=== PATIENT | female | born 1975 | race Caucasian/White ===

== ENCOUNTER 2023-05-12 09:02 | Emergency (ER) | payer SELFPAY ==
[2023-05-12 10:10] LABS: #Basophils 0.1 thou/uL (0.0-0.2); #Monocytes 0.5 thou/uL (0.11-0.59); #Neutrophils 6.2 thou/uL (1.40-6.50); %Basophils 0.7 % (0.0-1.0); %Eosinophils 0.4 % (0.0-10.0); %Lymphocytes 6.5 % (21.0-51.0); Hematocrit 32.5 % (36.0-47.0); Mean Corpuscular HGB CONC 30.8 g/dL (32.0-36.0); Mean Corpuscular Hemoglobin 29.2 pg (27.0-31.0); Mean Corpuscular Volume 94.8 fl (78.0-98.0); Mean Platelet Volume 11.7 fL (7.4-10.4); Platelet Count 160 10x3/uL (130-400); RBC Distribution Width 15.1 % (11.5-14.5); Red Blood Cell (RBC) Count 3.43 mill/uL (4.20-5.40); White Blood Cell (WBC) Count 7.3 10x3/uL (4.8-10.8)
[2023-05-12 10:38] LABS: Troponin I 0.052 ng/mL (< 0.028)
[2023-05-12 11:51] LABS: Albumin 3.6 g/dL (3.5-5.0); Anion Gap 17 mmol/L (10-20); Calcium 8.6 mg/dL (7.8-10.44); Carbon Dioxide 20 mmol/L (22-29); Chloride 100 mmol/L (98-107); Globulin 3.3 g/dL (2.4-3.5); Glucose 117 mg/dL (70-105); Potassium 5.4 mmol/L (3.5-5.1); Protein, Total 6.9 g/dL (6.0-8.3); Sodium 132 mmol/L (136-145)
[2023-05-12 11:52] LABS: Bilirubin, Total 0.7 mg/dL (0.2-1.2)
[2023-05-12 11:53] LABS: Alkaline Phosphatase 169 U/L (40-110); Calc. Creatinine Clearance 0 mL/min (70-130); Estimated GFR 4
[2023-05-12 11:54] LABS: BUN (Urea Nitrogen) 71 mg/dL (7.0-18.7)
[2023-05-12 11:55] LABS: AST (SGOT) 11 U/L (5-34)
[2023-05-12 11:56] LABS: ALT (SGPT) 10 U/L (8-55)
== END 2023-05-12 12:26 | disposition home or self-care (01) ==
LOC: EDBD 09:02 → ERS 09:02
DX: J18.9 Pneumonia, unspecified organism (principal); E11.22 Type 2 diabetes mellitus with diabetic chronic kidney disease; N18.6 End stage renal disease; J44.9 Chronic obstructive pulmonary disease, unspecified; Z99.2 Dependence on renal dialysis; Z79.899 Other long term (current) drug therapy
CPT/HCPCS: 71045; 80053; 83605; 83880; 84484; 85025; 93005

== ENCOUNTER 2023-09-17 07:22 | Emergency (ER) | payer BC, OTHER ==
[2023-09-17] MEDS ORDERED: Acetaminophen 500 MG TAB ONE (08:52)
== END 2023-09-17 11:22 | disposition home or self-care (01) ==
LOC: ERS 07:22
DX: S00.83XA Contusion of other part of head, initial encounter (principal); N18.6 End stage renal disease; E11.22 Type 2 diabetes mellitus with diabetic chronic kidney disease; J44.9 Chronic obstructive pulmonary disease, unspecified; Z99.2 Dependence on renal dialysis; W06.XXXA Fall from bed, initial encounter
CPT/HCPCS: 70450